=== PATIENT | female | born 1945 | race Caucasian/White ===

== ENCOUNTER 2017-06-26 11:14 | Emergency (ER) | payer OTHER ==
[~2017-06-26] VITALS: Ht 154.9 cm; Wt 100.3 kg
[~2017-06-26 11:14] MED LIST: FLOMAX0.4 MG PO; NAPROSYN500 MG PO; PERCOCET 5/31 TABLET PO; ZOFRAN ODT4 MG PO; [UNRECOGNIZED DRUG - OTHER]
[2017-06-26 11:58] VITALS: BP 152/97
[2017-06-26] MEDS ORDERED: ULTRACET1 TABLET PO (14:43)
== END 2017-06-26 15:06 | disposition home or self-care (01) ==
LOC: EME 11:14
DX: S83.91XA Sprain of unspecified site of right knee, initial encounter (principal); X50.1XXA Overexertion from prolonged static or awkward postures, initial encounter; Y92.002 Bathroom of unspecified non-institutional (private) residence as the place of occurrence of the external cause; M17.11 Unilateral primary osteoarthritis, right knee
CPT/HCPCS: 73564; 99281; 99283

== ENCOUNTER 2017-09-24 08:11 | Emergency (ER) | payer OTHER ==
[~2017-09-24] VITALS: Ht 154.9 cm; Wt 94.4 kg
[~2017-09-24 08:11] MED LIST changes: +ULTRACET1 TABLET PO
[2017-09-24 10:03] LABS: HEMATOCRIT 38.5 % (36.0-46.0); HEMOGLOBIN 12.8 G/DL (11.9-15.5); MCH 31.4 PG (29.0-34.0); MCHC 33.2 G/DL (30.0-36.0); MCV 94.6 FL (83-99); PLATELET COUNT 399 K/uL (156-360); RBC DIS.WIDTH-CV 13.3 % (11.8-14.6); RBC DIS.WIDTH-SD 45.4 % (39-53); RED BLOOD COUNT 4.07 M/uL (3.80-5.20); WHITE BLOOD COUNT 8.9 K/uL (4.1-10.2)
[2017-09-24 10:13] LABS: ALBUMIN 3.6 g/dL (3.2-4.8)
[2017-09-24 10:14] LABS: CHLORIDE 105 mEq/L (99-109); POTASSIUM 3.7 mEq/L (3.7-5.4); SODIUM 141 mEq/L (136-147)
[2017-09-24 10:16] LABS: GLUCOSE 162 mg/dL (70-99); TOTAL PROTEIN 7.5 g/dL (6.4-8.3)
[2017-09-24 10:18] LABS: TOTAL BILIRUBIN 0.4 mg/dL (0.0-1.0)
[2017-09-24 10:19] LABS: ALKALINE PHOSPHATASE 73 IU/L (3-129)
[2017-09-24 10:20] LABS: CREATININE 0.8 mg/dL (0.6-1.3); GFR ESTIMATE (CALCULATED) > 59 mL/min/
[2017-09-24 10:21] LABS: AST (GOT) 15 IU/L (2-34); UREA NITROGEN (BUN) 11 mg/dL (9-23)
[2017-09-24 10:22] LABS: ALT (GPT) 17 IU/L (3-49)
[2017-09-24] MEDS ORDERED: PERCOCET 5/31 TABLET PO (11:38)
[2017-09-24 12:02] VITALS: BP 112/60
== END 2017-09-24 12:03 | disposition home or self-care (01) ==
LOC: EME 08:11
PROVIDERS: Nurse Practitioner Family
DX: K64.8 Other hemorrhoids (principal); R59.0 Localized enlarged lymph nodes; K62.5 Hemorrhage of anus and rectum; K57.30 Diverticulosis of large intestine without perforation or abscess without bleeding; N20.0 Calculus of kidney; R93.8 Abnormal findings on diagnostic imaging of other specified body structures; I70.0 Atherosclerosis of aorta; Z87.891 Personal history of nicotine dependence
CPT/HCPCS: 74177; 80053; 85027; 99281; 99284; J1885; J7030

== ENCOUNTER 2017-10-01 05:05 | Emergency (ER) | payer OTHER ==
[~2017-10-01] VITALS: Ht 154.9 cm; Wt 93.5 kg
[2017-10-01 06:08] LABS: HEMATOCRIT 38.9 % (36.0-46.0); HEMOGLOBIN 12.9 G/DL (11.9-15.5); MCHC 33.2 G/DL (30.0-36.0); MCV 93.5 FL (83-99); NRBC (%) 0.2 /100 WBC (0-0); PLATELET COUNT 410 K/uL (156-360); RBC DIS.WIDTH-SD 47.9 % (39-53); RED BLOOD COUNT 4.16 M/uL (3.80-5.20); WHITE BLOOD COUNT 8.6 K/uL (4.1-10.2)
[2017-10-01 06:17] LABS: ALBUMIN 2.7 g/dL (3.2-4.8); CHLORIDE 101 mEq/L (99-109); SODIUM 139 mEq/L (136-147)
[2017-10-01 06:19] LABS: GLUCOSE 154 mg/dL (70-99); TOTAL PROTEIN 6.4 g/dL (6.4-8.3)
[2017-10-01 06:23] LABS: ALKALINE PHOSPHATASE 95 IU/L (3-129); CREATININE 0.9 mg/dL (0.6-1.3); GFR ESTIMATE (CALCULATED) > 59 mL/min/
[2017-10-01 06:24] LABS: UREA NITROGEN (BUN) 16 mg/dL (9-23)
[2017-10-01 06:25] LABS: AST (GOT) 14 IU/L (2-34)
[2017-10-01 06:26] LABS: ALT (GPT) 14 IU/L (3-49); LIPASE 7 U/L (1.0-51.0)
[2017-10-01 06:27] LABS: TOTAL BILIRUBIN 0.5 mg/dL (0.0-1.0)
[2017-10-01 08:15] LABS: TROP-I INTERPRETATION NEGATIVE; TROPONIN-I < 0.01 ng/mL (0.0-0.30)
[2017-10-01 10:02] LABS: APPEARANCE CLOUDY ((CLEAR)); BILIRUBIN SMALL; BLOOD LARGE; COLOR AMBER ((YELLOW)); GLUCOSE (STRIP) 50; KETONES 20; LEUKOCYTES MODERATE; NITRITE NEGATIVE; PROTEIN (STRIP) 100
[2017-10-01 10:14] LABS: BACTERIA RARE /HPF; EPITHELIAL CELLS 3+ /HPF; HYALINE CASTS 30-40 /LPF; MUCUS 1+ /LPF; RED BLOOD CELLS TNTC /HPF (0-5); UCUL ADDED? YES; WHITE BLOOD CELLS 30-40 /HPF (0-5)
[2017-10-01 12:44] LABS: APPEARANCE SL.HAZY ((CLEAR)); BILIRUBIN SMALL; BLOOD LARGE; COLOR YELLOW ((YELLOW)); GLUCOSE (STRIP) NEGATIVE; KETONES 20; LEUKOCYTES NEGATIVE; NITRITE NEGATIVE; PROTEIN (STRIP) 100; SPECIFIC GRAVITY 1.023 (1.000-1.030)
[2017-10-01 13:17] LABS: BACTERIA RARE /HPF; EPITHELIAL CELLS RARE /HPF; HYALINE CASTS 40-50 /LPF; MUCUS 1+ /LPF; RED BLOOD CELLS TNTC /HPF (0-5); UCUL ADDED? YES; WHITE BLOOD CELLS 15-20 /HPF (0-5); WHITE CELL CASTS 15-20 /LPF
[2017-10-01] MEDS ORDERED: FLAGYL500 MG PO (15:18)
[2017-10-01] MEDS ORDERED: PERCOCET 5/31 TABLET PO (15:18)
[2017-10-01] MEDS ORDERED: CIPRO500 MG PO (15:18)
[2017-10-01] MEDS ORDERED: ZOFRAN ODT4 MG PO (15:18)
[2017-10-01 16:11] VITALS: BP 101/43
== END 2017-10-01 16:17 | disposition home or self-care (01) ==
LOC: EME → EDBD 05:05 → EME 05:05
PROVIDERS: Emergency Medicine; Nurse Practitioner Family
DX: K62.89 Other specified diseases of anus and rectum (principal); K52.9 Noninfective gastroenteritis and colitis, unspecified; N20.0 Calculus of kidney; N39.0 Urinary tract infection, site not specified; E87.6 Hypokalemia; R07.89 Other chest pain; R05 Cough; R94.31 Abnormal electrocardiogram [ECG] [EKG]; Z87.891 Personal history of nicotine dependence
CPT/HCPCS: 71046; 74176; 80053; 81003; 83690; 84484; 85027; 87086; 93005; 99281; 99285; J2405; J3010; J7030